=== PATIENT | female | born 1955 | race Caucasian/White ===

== ENCOUNTER 2020-12-30 08:52 | Emergency (ER) | payer MEDICARE, SELFPAY ==
[2020-12-30 09:03] VITALS: BP 153/79; PULSE 63; RESP 18; TEMP 36.6; O2SAT 96
--- NOTE | 2020-12-30 09:14 | ED.FEMALEGU ---
HPI - Female Genitourinary General Chief complaint: Urogenital-Female Stated complaint: Pain in lower back, vomitting Time Seen by Provider: 12/30/20 09:14 Source: patient Mode of arrival: ambulatory Limitations: no limitations History of Present Illness HPI Narrative: Luis Pereyra is a 65 yo female with a PMH of colitis, HTN, depression, [facility] after awakening with right sharp flank pain at which at 5 AM and since then has had 7 emesis. She is afebrile. States that she has all smelling urine. She has history of renal calculi x1 Related Data Home Medications Medication Instructions Recorded Confirmed amlodipine 12/30/20 atenolol 12/30/20 cholestyramine (with sugar) ea 12/30/20 esomeprazole magnesium mg 12/30/20 lisinopril 12/30/20 venlafaxine mg PO 12/30/20 Allergies Allergy/AdvReac Type Severity Reaction Status Date / Time Sulfa (Sulfonamide Allergy Severe Hives Verified 12/30/20 09:10 Antibiotics) Review of Systems Review of Systems: Narrative: CONSTITUTIONAL: Denies fever, chills, sweats. EYES: Denies visual changes, redness, discharge. ENT: Denies rhinorrhea, congestion, sore throat, otalgia. CARDIOVASCULAR: Denies chest pain, palpitations, edema. RESPIRATORY: Denies dyspnea, wheezing, cough GASTROINTESTINAL: Denies abdominal pain, nausea, has vomiting, diarrhea. Has right flank pain GENITOURINARY: Denies dysuria, hematuria, abnormal discharge SKIN: Denies rash or itching. NEUROLOGIC: Denies numbness, or focal weakness. PSYCHIATRIC: Denies anxiety or depression. PMFSH Past Medical History Medical History Colitis Depression HTN (hypertension) Social History Social History (Updated 12/30/20 @ 09:22 by Melida Juárez CNP) Smoking status: Never smoker Alcohol intake: never Comments At time of signature, I agree with nursing past medical, surgical, social and family history. There is no relevant family history pertinent to the presenting complaint. Exam Narrative: Exam Narrative: GENERAL: This is a well-nourished, well-developed patient, in moderate distress. HEAD: normocephalic, atraumatic. EYES: . Sclera clear/white. Vision is grossly intact. EARS: External ears normal, Hearing grossly intact. NOSE: External nose normal without nasal discharge, nares without redness, no rhinorrhea. THROAT: Mucous membranes moist, NECK: Neck supple, CARDIOVASCULAR: Regular rate and rhythm without murmurs, gallops, or rubs. GI: Has nausea, right-sided flank pain right CVA, bowel sounds normal RESPIRATORY: Clear to auscultation. Breath sounds equal bilaterally. No wheezes, rales, or rhonchi. SKIN: warm, intact with no suspicious lesions or rash, good texture and turgor. NEURO: awake, alert, and oriented to person, place and time. There were no obvious focal neurologic abnormalities. Steady gait EXTREMITIES: Normal range of motion. BACK: Nontender without deformity Course Course Emergency Course: Patient has been vomiting since 5:00 this morning when she awoke with a #sharp right-sided flank pain UA shows only blood and protein Patient transferred to [facility] ER- spoke with Nohemy re: transfer- accepting physician is Dr Mckee Vital Signs Vital signs: Vital Signs Temperature 97.8 F 12/30/20 09:03 Pulse Rate 63 12/30/20 09:03 Respiratory Rate 18 12/30/20 09:03 Blood Pressure 153/79 H 12/30/20 09:03 Pulse Oximetry 96 12/30/20 09:03 Temperature 97.8 F 12/30/20 09:03 Pulse Rate 63 12/30/20 09:03 Respiratory Rate 18 12/30/20 09:03 Blood Pressure 153/79 H 12/30/20 09:03 Pulse Oximetry 96 12/30/20 09:03 MDM - Female Genitourinary MDM Narrative Medical decision making narrative: Based on the right-sided flank pain and her UA results suspect of renal calculi alternate explanations for the diagnosis could be pyelonephritis gastroenteritis Lab Data Labs: Urine Glucose
[2020-12-30] MEDS: ONDANSETRON HCL ODT 4 MG TABLET PO (09:26)
== END 2020-12-30 09:38 | disposition short-term general hospital (02) ==
PROVIDERS: Emergency Provider Nurse Practitioner
DX: R10.9 Unspecified abdominal pain (principal); R11.2 Nausea with vomiting, unspecified; I10 Essential (primary) hypertension
CPT/HCPCS: 81003; 87077; 87086; 87186; 99213; A9270; G0463

== ENCOUNTER 2022-05-01 08:20 | Emergency (ER) | payer MEDICARE, SELFPAY ==
[2022-05-01 08:28] VITALS: BP 145/95; PULSE 76; RESP 20; TEMP 36.7; O2SAT 96
--- NOTE | 2022-05-01 08:40 | ED.LOWEXIN ---
HPI - Extremity Injury (Lower) General Chief Complaint: Extremity Injury, Lower Stated Complaint: Skin Sore/ Both Feet Time Seen by Provider: 05/01/22 08:40 Source: patient, RN notes reviewed and old records reviewed Mode of arrival: ambulatory Limitations: no limitations History of Present Illness HPI Narrative: 67-year-old female who presents to [facility] with complaints of blisters to the bilateral plantar region of feet noted Friday evening. Patient states she attended a football game and placed foot warmers to the bottom of her feet over socks and developed these blisters. Patient report that she was walking around a lot and is unsure if from warmers or friction. Patient has fluid filled blister on the sole of each foot., denies any acute pain. MD complaint: other (blisters to bottom of feet) Onset (ago): day(s) (4 days) Exacerbating factors: weight bearing Related Data Home Medications Medication Instructions Recorded Confirmed amlodipine 5 mg tablet 5 mg PO DAILY 12/30/20 05/01/22 atenolol 25 mg tablet 25 mg PO DAILY 12/30/20 05/01/22 esomeprazole magnesium 40 mg 40 mg PO DAILY 12/30/20 05/01/22 capsule,delayed release lisinopril 20 mg tablet 20 mg PO DAILY 12/30/20 05/01/22 venlafaxine 75 mg capsule,extended 75 mg PO DAILY 12/30/20 05/01/22 release 24 hr atorvastatin 20 mg tablet 20 mg PO DAILY 05/01/22 05/01/22 fexofenadine 180 mg tablet 180 mg PO DAILY 05/01/22 05/01/22 Allergies Allergy/AdvReac Type Severity Reaction Status Date / Time Sulfa (Sulfonamide Allergy Severe Hives Verified 05/01/22 08:41 Antibiotics) Review of Systems Review of Systems: CONSTITUTIONAL: Denies fever, chills, or sweats. CARDIOVASCULAR: Denies chest pain, palpitations, or edema. RESPIRATORY: Denies cough or dyspnea. GASTROINTESTINAL: Denies abdominal pain, nausea, vomiting SKIN: Reports fluid filled blister to the sole of bilateral foot with no numbness or tingling,no pain beyond proportion, no redness of skin or any drainage noted. MUSCULOSKELETAL: Denies myalgia. NEUROLOGIC: Denies headache, numbness All systems reviewed & are unremarkable except as noted in HPI and below PMFSH Past Medical History Medical History Colitis Depression HTN (hypertension) Social History Social History (Updated 12/30/20 @ 09:22 by Melida Juárez, ALONZO) Smoking status: Never smoker Alcohol intake: never Comments At time of signature, agree with nursing past medical, surgical, social and family history. There is no relevant family history pertinent to the presenting complaint Exam Narrative: GENERAL: Well-appearing, well-nourished, and in no acute distress. HEAD: Normocephalic, atraumatic. EYES: PERRLA and EOMI. ENT: Nares clear, no rhinorrhea or epistaxis. Mucous membranes moist. NECK: Supple.no lymphadenopathy CHEST: Clear to auscultation. No respiratory distress.SAO2 96% on room air HEART: Regular rate and rhythm. No murmur heard. Normal peripheral pulses. ABDOMEN: Soft, nontender, nondistended, normal active bowel sounds. EXTREMITIES: Normal range of motion. No edema. SKIN: Warm, dry. 1cm fluid filled blisters noted to the soles of bilateral feet with no acute pain or redness of skin tissue, no drainage from blisters or any acute pain at rest, reports some increased discomfort with weight bearing to bilateral feet, NEURO: No focal deficits. Alert and oriented x3. Course Course Emergency Course: Patient is aware of diagnosis, understands and agrees to treatment plan. Anticipatory guidance given. Patient agrees to follow-up as directed and is aware of reasons to seek care at the emergency department. Portions of this record may have been created with voice recognition software Level of Care: Express Care Visit Vital Signs Vital signs: Vital Signs Temperature 36.7 C 05/01/22 08:28 Pulse Rate 76 05/01/22 08:28 Respiratory Rate 20 05/01/22 08:28 Bloo
== END 2022-05-01 09:07 | disposition home or self-care (01) ==
PROVIDERS: Emergency Provider Registered Nurse
DX: T25.222A Burn of second degree of left foot, initial encounter (principal); T25.221A Burn of second degree of right foot, initial encounter; T79.9XXA Unspecified early complication of trauma, initial encounter; X19.XXXA Contact with other heat and hot substances, initial encounter; I10 Essential (primary) hypertension; F32.A Depression, unspecified
CPT/HCPCS: 99213; G0463

== ENCOUNTER 2022-08-12 13:12 | Emergency (ER) | payer MEDICARE, SELFPAY ==
--- NOTE | 2022-08-12 13:13 | ED.URI ---
HPI - URI/Sore Throat General Chief Complaint: Upper Respiratory Infection Stated Complaint: cough Time Seen by Provider: 08/12/22 13:13 Source: patient and RN notes reviewed History of Present Illness HPI Narrative: Patient is a 67-year-old female presents to urgent care with complaints of persistent cough for the last 2 days and wheezing at night. Patient states the cough is dry and she has been taking Delsym and her Duyen daily. Denies any fevers, shortness of breath or chest discomfort. No other acute complaints. No acute distress noted. Patient aware of the plan of care. Some parts of this dictation were generated by voice recognition software and may contain typographical and/or grammatical inaccuracies. Related Data Home Medications Medication Instructions Recorded Confirmed amlodipine 5 mg tablet 5 mg PO DAILY 12/30/20 05/01/22 atenolol 25 mg tablet 25 mg PO DAILY 12/30/20 05/01/22 esomeprazole magnesium 40 mg 40 mg PO DAILY 12/30/20 05/01/22 capsule,delayed release lisinopril 20 mg tablet 20 mg PO DAILY 12/30/20 05/01/22 venlafaxine 75 mg capsule,extended 75 mg PO DAILY 12/30/20 05/01/22 release 24 hr atorvastatin 20 mg tablet 20 mg PO DAILY 05/01/22 05/01/22 fexofenadine 180 mg tablet 180 mg PO DAILY 05/01/22 05/01/22 Allergies Allergy/AdvReac Type Severity Reaction Status Date / Time Sulfa (Sulfonamide Allergy Severe Hives Verified 05/01/22 08:41 Antibiotics) Review of Systems Review of Systems: CONSTITUTIONAL: Denies fever, chills, or sweats. EYES: Denies visual changes, redness, or discharge. ENT: Denies rhinorrhea, congestion, sore throat, or otalgia. CARDIOVASCULAR: Denies chest pain, palpitations, or edema. RESPIRATORY: Reports of a dry cough with wheezing at night GASTROINTESTINAL: Denies abdominal pain, nausea, vomiting, or diarrhea. GENITOURINARY: Denies dysuria or hematuria. SKIN: Denies rash or itching. MUSCULOSKELETAL: Denies back pain, joint pain, or myalgia. NEUROLOGIC: Denies headache, numbness, or weakness. All other systems reviewed are negative, except as documented in HPI. [facility] Past Medical History Medical History Colitis Depression HTN (hypertension) Social History Social History (Updated 12/30/20 @ 09:22 by Melida Juárez, ALONZO) Smoking status: Never smoker Alcohol intake: never Comments At the time of my signature, I reviewed and agree with the nursing past medical, surgical, social, and family history. There is no relevant family history pertinent to the patient complaint. Exam Narrative: GENERAL: This is a well-nourished, well-developed patient, in no apparent distress. HEAD: normocephalic, atraumatic. EYES: PERRL. Sclera clear/white. Vision is grossly intact. EARS: External ears normal, auditory canals clear and without drainage, TMs normal without perforation. Hearing grossly intact. NOSE: External nose normal with no obvious nasal discharge, nares without redness, no rhinorrhea. THROAT: Mucous membranes moist, posterior pharynx clear. Mild postnasal drainage NECK: Neck supple, non-tender without lymphadenopathy, masses or thyromegaly. CARDIOVASCULAR: Regular rate and rhythm RESPIRATORY: Persistent dry cough noted on exam. Clear to auscultation. Breath sounds equal bilaterally. No wheezes, rales, or rhonchi. SKIN: warm, intact with no suspicious lesions or rash, good texture and turgor. NEURO: awake, alert, and oriented to person, place and time. There were no obvious focal neurologic abnormalities. EXTREMITIES: No clubbing, cyanosis, or edema. Course Course Level of Care: Express Care Visit Vital Signs Vital signs: Vital Signs Temperature 97.9 F 08/12/22 13:21 Pulse Rate 99 08/12/22 13:21 Respiratory Rate 16 08/12/22 13:21 Blood Pressure 117/86 08/12/22 13:21 Pulse Oximetry 96 08/12/22 13:21 Oxygen Delivery Room Air 08/12/22 13:21 Temperature 97.9 F
[2022-08-12 13:21] VITALS: BP 117/86; PULSE 99; RESP 16; TEMP 36.6; O2SAT 96
== END 2022-08-12 14:01 | disposition home or self-care (01) ==
PROVIDERS: Emergency Provider Nurse Practitioner Family
DX: J40 Bronchitis, not specified as acute or chronic (principal); I10 Essential (primary) hypertension
CPT/HCPCS: 99213; G0463

== ENCOUNTER 2022-11-12 09:38 | Emergency (ER) | payer MEDICARE, SELFPAY ==
--- NOTE | 2022-11-12 09:45 | ED.URI ---
HPI - URI/Sore Throat General Chief Complaint: Upper Respiratory Infection Stated Complaint: pink eye / sinus and cough Time Seen by Provider: 11/12/22 09:42 Source: patient Mode of arrival: ambulatory Limitations: no limitations History of Present Illness HPI Narrative: Patient is a 67-year-old female that presents with bilateral eye irritation, congestion, cough for 2 days. Patient states she woke up with her eyes matted shut. Patient states is eye irritation starting left eye and has spread to the right eye. Patient has been taken Tylenol with mild relief. Does take a daily Duyen. Patient has history of bronchitis a few months ago. Denies any high fever, chills, ear pain, sore throat, nausea, vomiting, diarrhea. Denies any sick contacts. Related Data Home Medications Medication Instructions Recorded Confirmed amlodipine 5 mg tablet 5 mg PO DAILY 12/30/20 11/12/22 atenolol 25 mg tablet 25 mg PO DAILY 12/30/20 11/12/22 esomeprazole magnesium 40 mg 40 mg PO DAILY 12/30/20 11/12/22 capsule,delayed release lisinopril 20 mg tablet 20 mg PO DAILY 12/30/20 11/12/22 venlafaxine 75 mg capsule,extended 75 mg PO DAILY 12/30/20 11/12/22 release 24 hr atorvastatin 20 mg tablet 20 mg PO DAILY 05/01/22 11/12/22 fexofenadine 180 mg tablet 180 mg PO DAILY 05/01/22 11/12/22 meloxicam 15 mg tablet 15 mg PO DAILY 11/12/22 11/12/22 Allergies Allergy/AdvReac Type Severity Reaction Status Date / Time Sulfa (Sulfonamide Allergy Severe Hives Verified 11/12/22 09:53 Antibiotics) Review of Systems Review of Systems: All systems reviewed & are unremarkable except as noted in HPI and below Constitutional: Constitutional: Denies body ache(s), Denies chills, Denies fatigue, Denies fever(s), Denies headache(s), Denies malaise and Denies weakness Eyes: Eyes: Denies blurry vision, Reports eye discharge, Reports irritation, Reports itchy eyes and Denies loss of vision ENT: Denies otalgia, Denies headache(s), Reports nasal congestion, Denies sinus pain and Denies sore throat Cardiovascular: Cardiovascular: Denies chest pain, Denies irregular heart rhythm and Denies dyspnea Respiratory: Respiratory: Reports cough and Denies dyspnea Gastrointestinal: Gastrointestinal: Denies abdominal pain, Denies diarrhea, Denies nausea and Denies vomiting Musculoskeletal: Musculoskeletal: Denies back pain, Denies myalgias and Denies arthralgias Integumentary/Breasts: Skin/Breast: Denies pruritus and Denies rash Neurologic: Denies headache(s), Denies loss of vision and Denies weakness Psychiatric: Psychiatric: Reports no additional psychiatric complaints Endocrine: Endocrine: Denies fatigue Allergic/Immunologic: Allergic/Immunologic: Denies itchy eyes PMFSH Past Medical History Medical History Colitis Depression HTN (hypertension) Social History Social History (Updated 12/30/20 @ 09:22 by Melida Juárez, 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 There is no relevant family history pertinent to the presenting complaint. Exam Const: General: cooperative, healthy appearing, comfortable, no acute distress and well nourished Nutritional Appearance: well nourished Orientation/consciousness: patient oriented x3 Limitations: no limitations HENMT: Head: normal to inspection, normocephalic and atraumatic Ears: hearing grossly normal bilaterally, external ears normal, TM's normal bilaterally, EAC's normal and no periauricular adenopathy Face/Nose/Sinus: Normal external nose present, Abnormal mucous membranes and turbinates present erythematous bilateral and diffuse, normal facial exam, sinuses nontender and face symmetric Face and sinus: normal facial exam, sinuses nontender and face symmetric Mouth: Yes Normal oral and palatal mucosa present, Yes lip normal, Yes ton
[2022-11-12 09:48] VITALS: BP 136/84; PULSE 77; RESP 20; TEMP 36.4; O2SAT 99
== END 2022-11-12 10:07 | disposition home or self-care (01) ==
PROVIDERS: Emergency Provider Nurse Practitioner Family
DX: J06.9 Acute upper respiratory infection, unspecified (principal); H10.33 Unspecified acute conjunctivitis, bilateral; I10 Essential (primary) hypertension; F32.A Depression, unspecified
CPT/HCPCS: 99213; G0463

== ENCOUNTER 2023-06-11 12:49 | Emergency (ER) | payer MEDICARE, SELFPAY ==
[2023-06-11 12:58] VITALS: BP 147/91; PULSE 90; RESP 18; TEMP 37.3; O2SAT 96
--- NOTE | 2023-06-11 13:15 | ED.GENADULT ---
HPI - General Adult General Chief complaint: Upper Respiratory Infection Stated complaint: sinus infection/ear Source: patient, RN notes reviewed and old records reviewed Mode of arrival: ambulatory Limitations: no limitations History of Present Illness HPI narrative: 68-year-old female presents to [facility] with complaints sinus congestion, sinus drainage, headache, right ear ache this started over 1 week ago. Patient taking [id number] medications with no relief. Patient denies weakness, dizziness, chest pain, short of breath, cough MD complaint: sinus congestion, earache Onset (ago): week(s) (1) Related Data Home Medications Medication Instructions Recorded Confirmed amlodipine 5 mg tablet 5 mg PO DAILY 12/30/20 11/12/22 atenolol 25 mg tablet 25 mg PO DAILY 12/30/20 11/12/22 esomeprazole magnesium 40 mg 40 mg PO DAILY 12/30/20 11/12/22 capsule,delayed release lisinopril 20 mg tablet 20 mg PO DAILY 12/30/20 11/12/22 venlafaxine 75 mg capsule,extended 75 mg PO DAILY 12/30/20 11/12/22 release 24 hr atorvastatin 20 mg tablet 20 mg PO DAILY 05/01/22 11/12/22 fexofenadine 180 mg tablet 180 mg PO DAILY 05/01/22 11/12/22 meloxicam 15 mg tablet 15 mg PO DAILY 11/12/22 11/12/22 amlodipine 5 mg tablet mg 06/11/23 Allergies Allergy/AdvReac Type Severity Reaction Status Date / Time Sulfa (Sulfonamide Allergy Severe Hives Verified 06/11/23 12:52 Antibiotics) Review of Systems Constitutional: Constitutional: Reports no additional constitutional complaints, Denies body ache(s), Denies chills, Denies fatigue, Denies fever(s) and Reports headache(s) Eyes: Eyes: Reports no additional eye complaints and Denies blurry vision ENT: Reports system reviewed and no additional complaints, except as documented, Denies vertigo, Denies dizziness, Denies ear discharge, Reports otalgia, Denies facial pain, Reports headache(s), Reports nasal congestion, Reports nasal discharge ( thick yellow discharge), Reports sinus pain, Reports sinus pressure and Denies sore throat Cardiovascular: Cardiovascular: Reports no additional cardiovascular complaints, Denies chest pain, Denies chest pain at rest, Denies rapid heart rate and Denies dyspnea Respiratory: Respiratory: Reports no additional respiratory complaints, Denies chest congestion, Denies cough, Denies pain on inspiration, Denies pain with cough and Denies dyspnea Gastrointestinal: Gastrointestinal: Denies abdominal pain, Denies diarrhea, Denies nausea and Denies vomiting Integumentary/Breasts: Skin/Breast: Denies rash Neurologic: Reports system reviewed and no additional complaints, except as documented, Denies vertigo, Denies dizziness and Denies headache(s) Endocrine: Endocrine: Denies fatigue [facility] Past Medical History Medical History Colitis Depression HTN (hypertension) Social History Social History Smoking status: Never smoker Alcohol intake: never Comments At the time of my signature, I reviewed and agree with the nursing past medical, surgical, social, and family history. There is no relevant family history pertinent to the patient complaint. Exam Const: General: cooperative, healthy appearing, no acute distress and well nourished Nutritional Appearance: well nourished Orientation/consciousness: patient oriented x3 Limitations: no limitations HENMT: Head: normal to inspection and normocephalic Ears: external ears normal, TM's normal bilaterally, mastoids normal and Abnormal EAC present Face/Nose/Sinus: normal facial exam Face and sinus: sinus tenderness maxillary Mouth: Yes Normal oral and palatal mucosa present, Yes oropharynx normal and Yes moist mucous membranes Throat: tonsils normal, uvula midline, posterior oropharynx abnormal erythema and no uvular edema Eyes: General: appearance normal, both eyes and all related structures Sclera:
== END 2023-06-11 13:24 | disposition home or self-care (01) ==
PROVIDERS: Emergency Provider Registered Nurse
DX: J01.90 Acute sinusitis, unspecified (principal); I10 Essential (primary) hypertension; F32.A Depression, unspecified
CPT/HCPCS: 99213; G0463